=== PATIENT | male | born 1995 | race Caucasian/White ===

== ENCOUNTER 2019-06-30 00:22 | Emergency (ER) | payer OTHER ==
[2019-06-30] MEDS ORDERED: AZITHROMYCIN 250 MG TABLET PO STA (02:15)
[2019-06-30] MEDS ORDERED: DEXAMETHASONE 10 MG/ML VIAL PO STA (02:15)
[2019-06-30] MEDS ORDERED: CHERRY SYRUP 10 ML UDC PO ONE (02:15)
[2019-06-30] MEDS ORDERED: ACETAMINOPHEN 325 MG TABLET PO STA (02:15)
--- NOTE | 2019-06-30 02:18 | ED Physician Documentation ---
PD HPI URI - Stated complaint Stated Complaint: CONGESTION/COUGH/HEAD PRESSURE - Chief complaint Chief Complaint: Resp - History obtained from History obtained from: Patient, Family - History of Present Illness Timing - onset: Yesterday Timing duration: Days (2) Timing details: Gradual onset, Still present Associated symptoms: Fever, Chills, Ear pain, Nasal congestion, Rhinorrhea, Sinus pain, Sore throat, Dry cough Contributing factors: Sick contact Improves by: Rest, Medication Worsened by: Activity Similar symptoms before: Has not had sx before Recently seen: Not recently seen - Additional information Additional information: Previously well 23-year-old male has developed a cough and congestion with a feeling of cotton in both of his ears sinus pressure and pain and a sore throat. He took some Tylenol earlier in the day and he has not taken any since. He has developed fever and he aches everywhere. Review of Systems Constitutional: reports: Fever, Chills, Myalgias, Fatigue Eyes: denies: Decreased vision Ears: reports: Ear pain Nose: reports: Rhinorrhea / runny nose, Congestion, Sinus pressure / pain Throat: reports: Sore throat Cardiac: denies: Chest pain / pressure, Palpitations Respiratory: reports: Cough. denies: Dyspnea GI: denies: Vomiting PD PAST MEDICAL HISTORY - Present Medications Home Medications: Ambulatory Orders Medication Instructions Recorded Confirmed Azithromycin [Zithromax] 250 mg PO DAILY #4 tablet 06/30/19 - Allergies Allergies/Adverse Reactions: Allergies Allergy/AdvReac Type Severity Reaction Status Date / Time No Known Drug Allergies Allergy Verified 06/30/19 00:35 PD ED PE NORMAL - Vitals Vital signs reviewed: Yes (febrile and hypertensive) - General General: Alert and oriented X 3, No acute distress, Well developed/nourished - HEENT HEENT: Atraumatic, PERRL, EOMI, Pharynx benign, Other (both TM's are inflamed the right is worse than the left. There is bilat maxillary sinus point tenderness. 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, No motor deficit, No sensory deficit, Normal speech Eye Opening: Spontaneous Motor: Obeys Commands Verbal: Oriented GCS Score: 15 - Psych Psych: Normal mood, Normal affect Results - Vitals Vitals: Vital Signs - 24 hr 06/30/19 00:30 Temperature 37.9 C H Heart Rate 100 Respiratory 18 Rate Blood Pressure 143/82 H O2 Saturation 99 Oxygen O2 Source Room air PD MEDICAL DECISION MAKING - ED course Complexity details: reviewed results, re-evaluated patient, considered differential, d/w patient, d/w family ED course: 23-year-old male with acute febrile illness has otitis on examination appears to have sinusitis with sinus point tenderness as well he is administered Dex Methasone 10 mg orally and given 500 mg of a azithromycin as well as Tylenol. We will place him on a course of azithromycin. Departure - Departure Disposition: 01 Home, Self Care Clinical Impression: Otitis media Qualifiers: Otitis media type: suppurative Chronicity: acute Laterality: bilateral Recurrence: non-recurrent Spontaneous tympanic membrane rupture: without spontaneous rupture Qualified Code(s): H66.003 - Acute suppurative otitis media without spontaneous rupture of ear drum, bilateral Sinusitis Qualifiers: Sinusitis location: maxillary Chronicity: acute Recurrence: non-recurrent Qualified Code(s): J01.00 - Acute maxillary sinusitis, unspecified Condition: Stable Instructions: ED Sinusitis Abx Tx, ED Otitis Media Acute Adult Follow-Up: [facility] [Provider Group] Prescriptions: Azithromycin [Zithromax] 250 mg PO DAILY #4 tablet Forms: Activity restrictions
[2019-06-30 02:36] VITALS: BP 134/85
== END 2019-06-30 02:35 | disposition home or self-care (01) ==
LOC: ED 00:22
DX: J01.00 Acute maxillary sinusitis, unspecified (principal); H66.003 Acute suppurative otitis media without spontaneous rupture of ear drum, bilateral
CPT/HCPCS: 99282; 99284; A9270

== ENCOUNTER 2020-07-14 09:40 | Outpatient (CLI) | payer OTHER ==
--- NOTE | 2020-07-14 10:04 | SLEEP CARE CONSULTATION ---
Information from patient questionnaire entered by Edith Moe. I have reviewed and concur with the information entered by Edith Moe. This document represents the service I personally performed and the decisions made by me, Ximena Torres MD, [facility]. History of Present Illness Service Date and Time: 07/14/2020 0940 Reason for Visit: New patient Chief Complaint: reports: Insomnia, Unrefreshed sleep, Fatigue, Frequent awakenings at night Date of Onset: 2018 Usual bedtime: constantly changing Time it takes to fall asleep: 3+ hours Snores at night: Yes (began 3 months ago) Observed to quit breathing while asleep: No Sleeps alone due to snoring: No Number of times waking at night: every 30-60 minutes Reasons for waking at night: reports: Other (unknown) Toss, Turn, or Twitch while sleeping: Yes Recalls having dreams: Yes Feels refreshed in the morning: No Morning headache: Yes Sleepy or fatigued during the day: Yes Ever fallen asleep while driving: No Takes day naps: No Dreams during day naps: No Prior sleep studies: No Additional HPI information: I had the pleasure of seeing Mr. Reyes today regarding the possibility of him having a sleep disorder. As you know, he is a 68 year old gentleman who complains of insomnia, unrefreshed sleep, frequent awakenings, and persistent fatigue for the past year. He works swing shift. The patient tells me that he normally goes to bed around 9 am, and it takes him approximately 3 hours to fall asleep. He took melatonin. Ambien worked well but he is out of it. He has been told that he snores loudly and irregularly at night. He has never been ob served to stop breathing in his sleep. He can recall waking up on the average of every hour during the night, totaling 30 60 minutes. Most of the time he wakes up because of unknown reasons. He has never awakened because of his own snoring, choking, and having to gasp for air. There is a lot of tossing and turning in his sleep. No somniloquy (sleep talking) or somnambulism (sleep walking). Generally he can recall having dreams. In the morning he usually gets up out of the bed at variable times between noon and 2 pm. not feeling refreshed nor rested. He usually does have a headache upon waking up. During the day he complains of feeling sleepy and fatigued. However, his score on [place] Sleepiness Scale is only 1 out of 24. He has never fallen asleep while driving nor has had any accident due to sleepiness. He usually does not take naps during the day. Upon falling asleep during the day he denies having vivid dreams. He reports having impaired concentration during the day. 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 He is and lives in [place]. He smoked pipe occasionally. He drinks alcohol on the average of once a week. Family History: His brother has obstructive sleep apnea-hypopnea but not treated. 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 Patient is and lives in [place]. Have you smoked in the past 12 months: Yes (Pipe) Years of smokin Alcohol use: Yes Alcohol amount and frequency: 1 on occasion Caffeine use: Yes Caffeine amount and frequency: Dr. Kruse, Tea, Coffee Family History Family history of sleep disordered breathing: Yes (Every male in family snores) Family Hx Sleep Apnea: Mother: Snoring, Father: Snoring, Sibling: Sleep apnea - Untreated Allergies and Home Medications Drug allergies reviewed: Yes (NKDA) Home medication list reviewed: Yes (none) Review of Systems Cardiovascular: denies: high blood pressure, palpitations, chest pain, irregular heart rate or pulse, leg or foot swelling, have to sleep sitting up, other Respiratory: denies: shortness of breath, wheeze, sputum production, chronic cough, other Gastrointestinal: denies: heartburn, difficulty swallowing, nausea, vomitting, diarrhea, abdominal pain, other Urinary: denies: incontinence, frequency, urgency, impotence, other Neurological: denies: headaches, seizure, head trauma, disorientation, speech dysfunction, gait or balance problems, fainting or unconsciousness, other Psychiatric: reports: depression Ear/Nose/Throat: denies: nasal congestion, sinus problems, nose bleeds, dry mouth/throat, hoarseness, injury to nose, tonsillectomy, wisdom teeth removed, other Endocrine: denies: thyroid disease, history of goiter, sluggishness, too hot or cold, excessive thirst, increased appetite, increased urination, unexplained weakness, other Musculoskeletal: reports: joint pain, back pain, muscle pain or cramping Immunologic: denies: sneezing, rash, itching, allergies to food or environment, other Physical Exam Height: 5 ft 6 in Weight: 175 lb Body Mass Index: 28.2 BMI Classification: Overweight Impression and Plan IMPRESSION: 1. Possible Obstructive Sleep Apnea-Hypopnea Syndrome, as suggested by history of loud snoring, frequent awakenings during the night, unrefreshed sleep, morning headache, cognitive impairment, and daytime hypersomnolence. Narrow oropharynx and obesity are common predisposing factors for obstructive sleep apnea-hypopnea syndrome. Pathophysiology of sleep-disordered breathing was discussed. I recommend proceeding to polysomnography to confirm the diagnosis and to assess severity. I informed the patient of what the sleep studies involve and after some discussion, he agreed to proceed. 2. Shift work sleep disorder. The patient is working nightshift regularly. He does keep regular sleep-wake schedule throughout the week, including the weekends. However, sleeping during the day is prone to disruption. Melatonin is the drug of choice but zolpidem is also reasonable. Plan: 1. Schedule an in-laboratory polysomnography. The sleep study will be performed during the day to match his sleep-wake schedule and to allow him to go back to work in the evening. 2. Return in 1 to 2 weeks after the study to discuss results and initiate therapy. Visit Type: Telehealth Video Video Type: Lance Patient Location: Home Location of Provider: Home Patient agrees and consents to this telehealth visit type: Yes Patient agrees to have their insurance billed: Yes Time Spent with Patient (minutes): 20 Provider Statement: I spent 100% of the Telehealth Video Call with the patient with greater than 50% spent counseling the patient and coordination of care.
== END 2020-07-14 09:41 | disposition home or self-care (01) ==
LOC: SC 09:40
PROVIDERS: ATTEND Internal Medicine Pulmonary Disease
DX: G47.10 Hypersomnia, unspecified (principal); R41.89 Other symptoms and signs involving cognitive functions and awareness; R51.9 Headache, unspecified; G47.8 Other sleep disorders; R06.83 Snoring

== ENCOUNTER 2020-07-26 07:45 | Emergency (ER) | payer OTHER ==
[2020-07-26 07:54] VITALS: BP 131/79
--- NOTE | 2020-07-26 08:22 | ED Physician Documentation ---
PD HPI SKIN - Stated complaint Stated Complaint: BACK RASH - Chief complaint Chief Complaint: Wound - History obtained from History obtained from: Patient, Family - Additional information Additional information: Emergency department complaining of a severe burning pain of the skin of his back for approximately 6 days, now with a rash. He states that he began to feel the sensation over his bilateral shoulder blades, but then it spread down both sides of his back. He is also noticed it wrapping around his flanks. The patient states that he has never had anything like this before. He denies any fevers, chills, or body aches. No headache. He states that he saw his doctor, who started him on gabapentin, but this did not seem to help. He states that this morning, he had his look at his back again and she noticed some red bumps. He states the pain seems to wax and wane a little, but it has been bad enough to keep him up at night. He denies any muscular pain. No trauma. He has never had a shingles outbreak. He states he was exposed to varicella when he was born, because his mother was infected at that time. The patient denies any itching. No rash on any of his extremities. He has not been using any new soaps, lotions, or detergents. He has no history of allergic reaction to anything. No other complaints at this time Review of Systems Ten Systems: 10 systems reviewed and negative Constitutional: reports: Reviewed and negative. denies: Fever, Chills, Myalgias Eyes: reports: Reviewed and negative Ears: reports: Reviewed and negative Nose: reports: Reviewed and negative. denies: Rhinorrhea / runny nose Throat: reports: Reviewed and negative. denies: Sore throat Cardiac: reports: Reviewed and negative Respiratory: reports: Reviewed and negative GI: reports: Reviewed and negative. denies: Abdominal Pain : reports: Reviewed and negative Skin: reports: Rash, Other (Skin pain) Musculoskeletal: reports: Reviewed and negative Neurologic: reports: Reviewed and negative. denies: Headache Psychiatric: reports: Reviewed and negative Endocrine: reports: Reviewed and negative Immunocompromised: reports: Reviewed and negative PD PAST MEDICAL HISTORY - Present Medications Home Medications: Ambulatory Orders Medication Instructions Recorded Confirmed Azithromycin [Zithromax] 250 mg PO DAILY #4 tablet 06/30/19 Acyclovir [Zovirax] 400 mg PO 5XD 5 Days #5 capsule 07/26/20 predniSONE [Deltasone] 60 mg PO DAILY 5 Days #15 tablet 07/26/20 - Allergies Allergies/Adverse Reactions: Allergies Allergy/AdvReac Type Severity Reaction Status Date / Time No Known Drug Allergies Allergy Verified 07/26/20 07:54 PD ED PE NORMAL - Vitals Vital signs reviewed: Yes - General General: Alert and oriented X 3, No acute distress - HEENT HEENT: Atraumatic, PERRL, EOMI, Moist mucous membranes - Neck Neck: Supple, no meningeal sign - Respiratory Respiratory: No respiratory distress - Derm Derm: Warm and dry, Other (She has extensive scarring without pock marking on his back, consistent with his history of acne as a teenager. Scant, scattered macules and papules with 2 pustules on right upper back. 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 Certainly, the description of the pain and burning for several days, leading up to an outbreak of rash is concerning for shingles; however, the rash at this point does not appear typical of shingles, and it would be highly unusual for the outbreak to involve multiple nerve roots in a young, otherwise healthy patient. At this time, given that symptoms have been going on for almost a week, I have discussed the option with the patient of trying a course of acyclovir and prednisone to see if this helps. I cannot be certain that the patient has shingles and as stated, it would be in atypical case of so. However, the rash does not appear to be an allergic reaction and does not sound typical of this either. We discussed the need for primary care and potentially, dermatology follow-up, if the patient's symptoms are not better within the week. Patient states that he is well established with his primary care physician at the [facility] and that they have already placed a dermatology referral. We have discussed the usual indications for return. Departure - Departure Disposition: 01 Home, Self Care Clinical Impression: Zoster Qualifiers: Herpes zoster complications: without complications Qualified Code(s): B02.9 - Zoster without complications Condition: Stable Instructions: ED Shingles Prescriptions: predniSONE [Deltasone] 60 mg PO DAILY 5 Days #15 tablet Acyclovir [Zovirax] 400 mg PO 5XD 5 Days #5 capsule Comments: It is not clear exactly what is causing your symptoms. Your rash is very mild and does not appear typical of either shingles or an allergic reaction. H owever, with the intense pain and burning that you have been having for several days before the rash, there is certainly concern for an atypical form of shingles, as the illness often starts with the kind of pain you are describing before rash outbreak occurs. This point in time, the best course is probably to treat you with the antiviral acyclovir and a short course of an anti- inflammatory steroid. If you continue to have symptoms for more than the next week, you will need to follow-up with your doctor and potentially, dermatology. You may use ibuprofen and Tylenol to help with the discomfort, along with the other medications you are on. Forms: Activity restrictions
== END 2020-07-26 08:34 | disposition home or self-care (01) ==
LOC: ED 07:45
DX: B02.9 Zoster without complications (principal)
CPT/HCPCS: 99282; 99284

== ENCOUNTER 2020-08-26 06:45 | Outpatient (CLI) | payer OTHER | END 2020-08-26 06:46 | disposition home or self-care (01) | LOC: SC 06:45 | PROVIDERS: ATTEND Internal Medicine Pulmonary Disease | DX: G47.61 Periodic limb movement disorder (principal); E66.3 Overweight; Z68.28 Body mass index [BMI] 28.0-28.9, adult | CPT/HCPCS: 95810 ==

== ENCOUNTER 2020-09-03 17:03 | Outpatient (CLI) | payer OTHER ==
--- NOTE | 2020-09-03 17:35 | SLEEP CARE CONSULTATION ---
Information from patient questionnaire entered by Jose Fernández. I have reviewed and concur with the information entered by Jose Fernández. This document represents the service I personally performed and the decisions made by , Kelley Sandoval ARNP. History of Present Illness Service Date and Time: 09/03/2020 1700 Initial [place] Sleepiness Scale score: 1 (in 2019) Current [place] Sleepiness Scale score: 10 Additional HPI information: REBECCA TEIXEIRA returns via Telehealth vist for follow up and results of the recently performed polysomnography. The patient was informed of the following findings: patient has no significant sleep disordered breathing with an average AHI of 0.3 and bakari oxygen saturation of 91%. He did have moderate PLMs contributing to sleep fragmentation. I explained the pathophysiology behind obstructive sleep apnea. Patient does not have sleep apnea and was advised how weight gain could increase the risk of developing sleep apnea in the future. Patient has light to loud snoring. Snoring can be reduced by weight loss. Weight loss is best achieved with diet consult. Patient instructed to contact PCP for referral. Snoring can also be treated with an oral appliance from a dentist. Advised to check insurance coverage. In addition, an ENT evaluation can be do to see if other treatment is indicated. Patient counseled not drink alcohol less than 4 hours before bedtime as it can increase snoring and apnea. Patient was cautioned about risks of drowsy driving until sleepiness symptoms resolve. Sleep Study - Results Type of Sleep Study: Polysomnography Prior sleep studies: No Polysomnography/Home Sleep Study results: IMPRESSION: The quality of the study is good. The patient had normal sleep efficiency. The sleep architecture was abnormal for mild sleep fragmentation and reduced amount of time spent in slow wave sleep (N3). Respiratory monitoring showed no significant sleep disordered breathing sleep-disordered breathing (AHI = 0.3) or hypoxia (bakari oxygen saturation of 91%). The patient slept adequately in supine position (supine AHI = 0.4; non-supine = 0.00). Snore was light to loud in intensity. There was moderate periodic leg movement of sleep contributing to the sleep fragmentation. Cardiac rhythm was normal sinus rhythm without significant arrhythmia. No abnormal behavior (parasomnia) observed during the night. Allergies and Home Medications Drug allergies reviewed: Yes (NKDA) Home medication list reviewed: Yes (no changes) Review of Systems Review of systems same as previous: Yes (no changes) Physical Exam Vital signs obtained and entered by: Telehealth visit to limit exposure during Covid pandemic Height: 5 ft 6 in Impression and Plan 1. Snoring but no significant sleep disordered breathing. Patient advised that often weight loss will reduce snoring as well as apnea risk. An oral appliance can also be used for snoring. This would require a dental consultation. Patient cautioned not to use other online appliances as can cause bite issues. A list of accredited dentists in area and one local dentist who makes oral appliances given. Patient is advised to check if insurance will cover. An ENT consult can also be helpful to determine if any other treatment is an option. 2. Periodic limb movement, moderate, that did add to fragmentation of the patients sleep. Periodic limb movement of sleep (PLMS) is characterized by episodes of repetitive limb movements that occur during sleep and usually involve the lower limbs. The etiology is unknown but can be associated with restless leg syndrome (RLS), neuropathy, spinal cord diseases, kidney disease, rheumatological disorders, narcolepsy, obstructive sleep apnea, and REM sleep behavior disorder. Other factors that can increase PLMS and/or RLS are heredity and iron deficiency as reflected by a low serum ferritin level below 50 to 75mcg / L. Several medications can precipitate or aggravate PLMS such as selective serotonin re-uptake inhibitor antidepressants, tricyclic antidepressants, lithium, and dopamine receptor antagonists with the exception of bupropion. Caffeine can also aggravate PLMS and should be avoided. Sleep hygiene methods can also improve sleep as well as lifestyle changes such as regular exercise. Patient was advised that further evaluation may be indicated. ------Patient had concern about feeling like he is "consciously awake with his eyes closed". He feels like his "body is rested" when he wakes up but his "mind is still tired". He states he knows he is sleeping but still feels he is conscious while laying there in his bed. He did reach REM sleep quickly in the sleep study. He states that when he was being prepared for the test he was sitting with his eyes closed due to the bright lights. The sound recording technician left room and when he came back he commented that he had got a little nap but he states he feels he was awake the whole time the sound recording technician was gone from the room. I discussed with patient that I will consult with Dr. Meyer about this and get back to him about his concerns with Dr. Meyer's feedback. He voiced understanding. * Follow up with PCP for moderate PLMs as needed * I will consult with director non profit about feeling awake when sleeping * Avoid alcohol consumption near bedtime * The patient is cautioned about driving until sleepiness is completely resolved. * Return as needed to office. Counseling Topics: Weight loss health impact Follow up with: PCP Follow up recommended for: PLMS Visit Type: Telehealth Video Video Type: Doximity Patient Location: Home Location of Provider: Office Patient agrees and consents to this telehealth visit type: Yes Patient agrees to have their insurance billed: Yes Time Spent with Patient (minutes): 17 Provider Statement: I spent 100% of the Telehealth Video Call with the patient with greater than 50% spent counseling the patient and coordination of care.
== END 2020-09-03 17:04 | disposition home or self-care (01) ==
LOC: SC 17:03
PROVIDERS: ATTEND Nurse Practitioner Family
DX: R06.83 Snoring (principal); G47.61 Periodic limb movement disorder

== ENCOUNTER 2020-09-13 00:06 | Emergency (ER) | payer OTHER ==
[2020-09-13 00:50] LABS: BASOPHILS % (AUTO) 0.3 %; EOSINOPHILS # (AUTO) 0.3 10^3/uL (0.0-0.7); EOSINOPHILS % (AUTO) 2.3 %; HGB - HEMOGLOBIN 15.1 g/dL (14.0-18.0); LYMPHOCYTES # (AUTO) 2.9 10^3/uL (1.5-3.5); LYMPHOCYTES % (AUTO) 20.7 %; MEAN CORPUSCULAR HEMOGLOBIN 32.4 pg (27.0-31.0); MEAN CORPUSCULAR HGB CONC 34.5 g/dL (32.0-36.0); MEAN PLATELET VOLUME 10.2 fL (7.4-11.4); MONOCYTES # (AUTO) 0.9 10^3/uL (0.0-1.0); MONOCYTES % (AUTO) 6.3 %; NEUTROPHILS # (AUTO) 9.9 10^3/uL (1.5-6.6); NEUTROPHILS % (AUTO) 70.1 %; PLT - PLATELET COUNT 241 10^3/uL (130-450); RED BLOOD COUNT 4.66 10^6/uL (4.70-6.10); RED CELL DISTRIBUTION WIDTH 11.6 % (12.0-15.0); WHITE BLOOD COUNT 14.1 x10^3/uL (4.8-10.8)
[2020-09-13 00:58] LABS: ALBUMIN 4.9 g/dL (3.2-5.5); ALBUMIN/GLOBULIN RATIO 1.7 (1.0-2.2); BILIRUBIN,TOTAL 0.7 mg/dL (0.2-1.0); CALCIUM 9.6 mg/dL (8.5-10.3); CREATININE 1.1 mg/dL (0.6-1.2); TOTAL PROTEIN 7.8 g/dL (6.7-8.2)
[2020-09-13] MEDS ORDERED: KETOROLAC 30 MG/ML VIAL IVP STA (01:25)
[2020-09-13] MEDS ORDERED: HYDROmorphone 1 MG/ML CARPUJECT IVP STA (01:25)
[2020-09-13] MEDS ORDERED: ONDANSETRON 4 MG/2 ML VIAL IVP STA (01:28)
[2020-09-13 02:23] LABS: BILIRUBIN,URINE NEGATIVE (NEGATIVE); GLUCOSE, URINE (UA) NEGATIVE (NEGATIVE); KETONES,URINE (UA) NEGATIVE (NEGATIVE); LEUKOCYTE ESTERASE, URINE NEGATIVE (NEGATIVE); NITRITE,URINE NEGATIVE (NEGATIVE); OCCULT BLOOD,URINE NEGATIVE (NEGATIVE); PROTEIN,URINE TRACE mg/dL (NEGATIVE); UROBILINOGEN,URINE 0.2 (NORMAL) E.U./dL (NORMAL)
[2020-09-13 02:25] LABS: CLARITY,URINE CLEAR (CLEAR)
--- NOTE | 2020-09-13 03:14 | ED Physician Documentation ---
PD HPI ABD PAIN - Stated complaint Stated Complaint: ABD/BACK PX - Chief complaint Chief Complaint: Abd Pain - History obtained from History obtained from: Patient - Additional information Additional information: Patient comes emergency department complaining of onset around 2100 this evening of back pain which is grown steadily worse. Patient states that he feels the pain in both sides of his low back but especially on the left side and that it seems to radiate through to the front of his abdomen. He states he feels phleboliths and left flank pain. Patient denies any change in bowel habits. He h as been nauseated but has not vomited. No fevers or chills. No dysuria or blood in the urine. No scrotal or testicular complaints. No history of kidney stones. Patient has had no abdominal surgeries. He states that the pain grew steadily worse and that it seems to come in waves. No recent back injury. No other complaints at this time. Review of Systems Ten Systems: 10 systems reviewed and negative Constitutional: reports: Reviewed and negative Eyes: reports: Reviewed and negative Ears: reports: Reviewed and negative Nose: reports: Reviewed and negative Throat: reports: Reviewed and negative Cardiac: reports: Reviewed and negative Respiratory: reports: Reviewed and negative GI: reports: Abdominal Pain, Nausea : reports: Reviewed and negative. denies: Dysuria, Hematuria Skin: reports: Reviewed and negative Musculoskeletal: reports: Back pain Neurologic: reports: Reviewed and negative Psychiatric: reports: Reviewed and negative Endocrine: reports: Reviewed and negative Immunocompromised: reports: Reviewed and negative PD PAST MEDICAL HISTORY - Past Medical History Past Medical History: Yes Neuro: Migraines - Past Surgical History Past Surgical History: No - Present Medications Home Medications: Ambulatory Orders Medication Instructions Recorded Confirmed HYDROcod/ACETAM 5/325 [[place] 5/325] 1 ea PO Q6H PRN #6 tablet 09/13/20 - Allergies Allergies/Adverse Reactions: Allergies Allergy/AdvReac Type Severity Reaction Status Date / Time No Known Drug Allergies Allergy Verified 09/13/20 00:18 - Social History Does the pt smoke?: No Smoking Status: Never smoker Does the pt drink ETOH?: Yes Does the pt have substance abuse?: No - Immunizations Immunizations are current?: Yes - POLST Patient has POLST: No PD ED PE NORMAL - Vitals Vital signs reviewed: Yes - General General: Alert and oriented X 3, Other (Patient appears visibly uncomfortable and is groaning and writhing on the bed.) - HEENT HEENT: Atraumatic, PERRL, EOMI, Moist mucous membranes - Neck Neck: Supple, no meningeal sign - Cardiac Cardiac: RRR, No murmur, Strong equal pulses - Respiratory Respiratory: No respiratory distress, Clear bilaterally - Abdomen Abdomen: Soft, Non tender, Non distended - Back Back: No CVA TTP, No spinal TTP - Derm Derm: Normal color, Warm and dry, No rash - Extremities Extremities: No deformity, No edema, No calf tenderness / cord - Neuro Neuro: Alert and oriented X 3 - Psych Psych: Normal mood, Normal affect Results - Vitals Vitals: Vital Signs - 24 hr 09/13/20 09/13/20 09/13/20 00:16 00:18 02:18 Temperature 36.9 C 36.9 C 36.8 C Heart Rate 72 72 74 Respiratory 18 18 16 Rate Blood Pressure 154/94 H 154/94 H 148/88 H O2 Saturation 97 97 98 Oxygen O2 Source Room air - Labs Labs: Laboratory Tests 09/13/20 09/13/20 09/13/20 00:25 00:25 02:15 WBC 14.1 H RBC 4.66 L Hgb 15.1 Hct 43.8 MCV 94.0 MCH 32.4 H MCHC 34.5 RDW 11.6 L Plt Count 241 MPV 10.2 Neut # (Auto) 9.9 H Lymph # (Auto) 2.9 [place] # (Auto) 0.9 Eos # (Auto) 0.3 Baso # (Auto) 0.0 Absolute Nucleated RBC 0.00 Nucleated RBC % 0.0 Sodium 139 Potassium 3.6 Chloride 103 Carbon Dioxide 26 Anion Gap 10.0 BUN 13 Creatinine 1.1 Estimated GFR (MDRD) 82 L Glucose 102 H Calcium 9.6 Total Bilirubin 0.7 AST 28 ALT 44 Alkaline Phosphatase 96 Total Protein 7.8 Albumin 4.9 Globulin 2.9 Albumin/Globulin Ratio 1.7 Lipase 30 Urine Color YELLOW Urine Clarity CLEAR Urine pH 6.0 Ur Specific [place] 1.010 Urine Protein TRACE Urine Glucose (UA) NEGATIVE Urine Ketones NEGATIVE Urine Occult Blood NEGATIVE Urine Nitrite NEGATIVE Urine Bilirubin NEGATIVE Urine Urobilinogen 0.2 (NORMAL) Ur Leukocyte Esterase NEGATIVE Ur Microscopic Review NOT INDICATED Urine Culture Comments NOT INDICATED - Rads (name of study) Ct abd/pelvis Radiology: Final report received, EMP read indepedently, See rad report (neg) PD MEDICAL DECISION MAKING - ED course Complexity details: reviewed results, re-evaluated patient, considered differential, d/w patient ED course: The patient was treated symptomatically with IV Toradol, Zofran, and Dilaudid. He was found to be feeling much better, though the nausea did recur later. Laboratory studies showed a mildly elevated white blood cell count, but a negative urine and CT scan of the abdomen and pelvis without contrast was neg ative. I had suspected most probably a kidney stone in this patient and was surprised to find the CT completely negative, given the degree of discomfort the patient seems to be having. I discussed with the patient that his work-up had been negative. The patient had begun to have an increase in nausea again and did actually vomit during our conversation. At this point, he was given an IV dose of Phenergan, but I did not feel that this would exchange mechanic as this her work-up had been nondiagnostic. I discussed with the patient that if his pain recurs to the degree that he was having it before, or if he develops fevers, he should return to the emergency department. The patient does not have any testicular or scrotal complaints, despite specific questioning, and I have discussed with him that while testicular torsion is something that has been considered, this Does not seem likely in light of the lack of specific symptoms and patient. We have discussed the usual indications for return. Departure - Departure Disposition: 01 Home, Self Care Clinical Impression: Abdominal pain Qualifiers: Abdominal location: lower abdomen, unspecified Qualified Code(s): R10.30 - Lower abdominal pain, unspecified Back pain Qualifiers: Back pain location: low back pain Chronicity: acute Back pain laterality: left Sciatica presence: without sciatica Qualified Code(s): M54.5 - Low back pain Condition: Stable Instructions: ED Abdominal Pain Unkn Cause, ED Spasm Back No Trauma Prescriptions: HYDROcod/ACETAM 5/325 [[place] 5/325] 1 ea PO Q6H PRN #6 tablet PRN Reason: Pain Comments: Your labs show a mild elevation of your white blood cell count, but otherwise are unremarkable. Your urinalysis is totally normal and your CT scan, which is very detailed, did not show any abnormalities. It is not exactly clear why you have had the symptoms that you have tonight. It is possible that you had a small kidney stone which passed, and caused a lot of pain and spasms through out the ureter, which is the tube that goes between the kidney and bladder. If this is the case, the stone had already been expelled from your bladder by the time of CT scan. There is no evidence of appendicitis or infection of your bowel wall as a cause of the pain. There is no blockage or other emergent condition. It is possible that you could have had a spasm of the deep musculature of your back, which can cause quite a bit of discomfort. At this time, it is not exactly clear what has caused your pain, but no emergent condition has been identified. If you are scheduled to work tomorrow, you may take the day off to rest and recover. If you have recurrence of your pain, especially with fever, please return to the emergency department.
[2020-09-13] MEDS ORDERED: ONDANSETRON ODT 4 MG Prepack 2 TL PRN (03:23)
[2020-09-13] MEDS ORDERED: PROMETHAZINE INJ 25 MG in SODIUM CHLORIDE 0.9% 50 ML IV STA (03:23)
[2020-09-13] MEDS ORDERED: PROMETHAZINE 25 MG/1 ML VIAL ONE (03:37)
[2020-09-13 04:09] VITALS: BP 142/80
--- NOTE | 2020-09-13 09:09 | CT Report ---
PROCEDURE: Abdomen/Pelvis WO INDICATIONS: back/L flank/low abd pain TECHNIQUE: Noncontrast 5 mm thick sections acquired from the diaphragms to the symphysis. 5 mm coronal and sagi ttal reformats were then performed. For radiation dose reduction, the following was used: automated exposure control, adjustment of mA and/or kV according to patient size. COMPARISON: None. FINDINGS: Image quality: Excellent. ABDOMEN: Lung bases: Lung bases are clear. Heart size is normal. Solid organs: Liver and spleen are normal in size. Gallbladder is unremarkable Pancreas is normal in contours. No adrenal nodules. Kidneys are normal in size, without hydronephrosis or nephrolithia sis. Peritoneum and bowel: Unenhanced bowel loops demonstrate normal wall thickness and caliber. The gildardo endix is thin-walled and gas-filled. No free fluid or air. Nodes and vessels: No retroperitoneal or mesenteric adenopathy by size criteria. Aorta and inferior vena cava are normal in caliber. Miscellaneous: No ventral hernias. PELVIS: Genitourinary: Bladder wall thickness is normal. Miscellaneous: No inguinal hernias or adenopathy. Bones: No suspicious bony lesions. No vertebral body compression fractures. Intraosseous hemangiom as noted at L3. IMPRESSION: 1. No acute intra-abdominal findings. Normal appendix. Findings are consistent with the overnight interpretation. Reviewed by: Etta Rangel MD on 09/13/2020 8:08 AM [facility] Approved by: Etta Rangel MD on 09/13/2020 8:08 AM [facility] Station ID: [id number]
== END 2020-09-13 04:10 | disposition home or self-care (01) ==
LOC: ED 00:06
DX: R10.30 Lower abdominal pain, unspecified (principal); M54.5 Low back pain; R11.2 Nausea with vomiting, unspecified; D72.829 Elevated white blood cell count, unspecified
CPT/HCPCS: 36415; 74176; 80053; 81003; 83690; 85025; 96374; 96375; 99285; J1170; J7040; 81001; 87086

== ENCOUNTER 2021-12-26 16:55 | Emergency (ER) | payer OTHER ==
[2021-12-26] MEDS ORDERED: ONDANSETRON 4 MG/2 ML VIAL IVP STA (17:17)
[2021-12-26] MEDS ORDERED: SODIUM CHLORIDE 0.9% 1,000 ML IV STA (17:17)
[2021-12-26] MEDS ORDERED: PANTOPRAZOLE 40 MG VIAL IVP STA (17:17)
[2021-12-26 17:30] LABS: BASOPHILS % (AUTO) 0.2 %; EOSINOPHILS # (AUTO) 0.1 10^3/uL (0.0-0.7); EOSINOPHILS % (AUTO) 0.6 %; HCT - HEMATOCRIT 43.5 % (42.0-52.0); LYMPHOCYTES # (AUTO) 2.1 10^3/uL (1.5-3.5); LYMPHOCYTES % (AUTO) 18.8 %; MEAN CORPUSCULAR HEMOGLOBIN 31.8 pg (27.0-31.0); MEAN CORPUSCULAR HGB CONC 34.5 g/dL (32.0-36.0); MEAN CORPUSCULAR VOLUME 92.2 fL (80.0-94.0); MEAN PLATELET VOLUME 9.7 fL (7.4-11.4); MONOCYTES # (AUTO) 0.5 10^3/uL (0.0-1.0); MONOCYTES % (AUTO) 4.7 %; NEUTROPHILS # (AUTO) 8.3 10^3/uL (1.5-6.6); NEUTROPHILS % (AUTO) 75.4 %; PLT - PLATELET COUNT 250 10^3/uL (130-450); RED BLOOD COUNT 4.72 10^6/uL (4.70-6.10); WHITE BLOOD COUNT 10.9 x10^3/uL (4.8-10.8)
[2021-12-26 17:42] LABS: ALBUMIN 5.1 g/dL (3.2-5.5); ALBUMIN/GLOBULIN RATIO 1.6 (1.0-2.2); BILIRUBIN,TOTAL 0.8 mg/dL (0.2-1.0); CALCIUM 9.7 mg/dL (8.5-10.3); CREATININE 0.6 mg/dL (0.6-1.2); POTASSIUM 3.8 mmol/L (3.5-5.0); TOTAL PROTEIN 8.2 g/dL (6.7-8.2)
--- NOTE | 2021-12-26 18:45 | ED Physician Documentation ---
History of Present Illness - Stated complaint Stated Complaint: VOMIT/LETHARGIC/CHILLS/FEVER - Chief complaint Chief Complaint: Abd Pain - History obtained from History obtained from: Patient - History of Present Illness Timing: Today - Additonal information Additional information: 26-year-old male comes in to the emergency department complaint of abdominal mackenzie n, nausea, vomiting. He states he drank a large amount of alcohol last night and is not feeling well today. Nothing makes it better. Worse when trying to eat and drink. No diarrhea. No constipation. Has not had similar symptoms previously. Mild headache, mild light sensitivity. Review of Systems Constitutional: denies: Fever, Chills Throat: denies: Sore throat Cardiac: denies: Chest pain / pressure Respiratory: denies: Cough GI: reports: Abdominal Pain (Epigastric, dull, burning), Nausea, Vomiting Skin: denies: Rash Musculoskeletal: denies: Neck pain, Back pain PD PAST MEDICAL HISTORY - Past Medical History Cardiovascular: None Respiratory: None Neuro: Migraines Endocrine/Autoimmune: None GI: None : None HEENT: None Psych: None Musculoskeletal: None Derm: None - Past Surgical History Past Surgical History: No - Present Medications Home Medications: Ambulatory Orders Medication Instructions Recorded Confirmed Ondansetron Odt [Zofran] 4 mg TL Q6H PRN #10 tablet 12/26/21 - Allergies Allergies/Adverse Reactions: Allergies Allergy/AdvReac Type Severity Reaction Status Date / Time No Known Drug Allergies Allergy Verified 12/26/21 17:04 - Social History Does the pt smoke?: Yes Smoking Status: Current some day smoker Does the pt drink ETOH?: Yes Does the pt have substance abuse?: No - Immunizations Immunizations are current?: Yes - POLST Patient has POLST: No PD ED PE NORMAL - Vitals Vital signs reviewed: Yes - General General: Alert and oriented X 3, No acute distress - HEENT HEENT: PERRL, Moist mucous membranes - Neck Neck: Supple, no meningeal sign - Cardiac Cardiac: RRR, Strong equal pulses - Respiratory Respiratory: No respiratory distress, Clear bilaterally - Abdomen Abdomen: Soft, Non tender, Non distended - Back Back: No CVA TTP, No spinal TTP - Derm Derm: Warm and dry - Neuro Neuro: Alert and oriented X 3 - Psych Psych: Normal mood, Normal affect Results - Vitals Vitals: Vital Signs - 24 hr 12/26/21 17:04 Temperature 36.7 C Heart Rate 72 Respiratory 18 Rate Blood Pressure 122/71 O2 Saturation 97 Oxygen O2 Source Room air - Labs Labs: Laboratory Tests 12/26/21 12/26/21 17:20 17:20 WBC 10.9 H RBC 4.72 Hgb 15.0 Hct 43.5 MCV 92.2 MCH 31.8 H MCHC 34.5 RDW 12.0 Plt Count 250 MPV 9.7 Neut # (Auto) 8.3 H Lymph # (Auto) 2.1 [place] # (Auto) 0.5 Eos # (Auto) 0.1 Baso # (Auto) 0.0 Absolute Nucleated RBC 0.00 Nucleated RBC % 0.0 Sodium 135 Potassium 3.8 Chloride 98 L Carbon Dioxide 26 Anion Gap 11.0 BUN 12 Creatinine 0.6 Estimated GFR (MDRD) 163 Glucose 107 H Calcium 9.7 Total Bilirubin 0.8 AST 66 H ALT 59 Alkaline Phosphatase 74 Total Protein 8.2 Albumin 5.1 Globulin 3.1 Albumin/Globulin Ratio 1.6 Lipase 31 PD MEDICAL DECISION MAKING - ED course Complexity details: reviewed results, re-evaluated patient, considered differential, d/w patient, d/w family ED course: Patient is well-appearing, nontoxic. Afebrile. Feels better after IV fluids and Zofran. Drink 3 to 4 glasses of water in the emergency department. Ambulating well. Appears to be a hangover from alcohol intoxication last night. We will place on Zofran for home and continue supportive care. Patient was given a dose of Protonix for alcohol induced gastritis. Patient will return if he worsens or fails to improve as expected. Patient and family counseled regarding signs and symptoms for which I believe and urgent re-evaluation would be necessary. Patient with good understanding of and agreement to plan and is comfortable going home at this time This document was made in part using voice recognition software. While efforts are made to proofread this document, sound alike and grammatical errors may occur. Departure - Departure Disposition: 01 Home, Self Care Clinical Impression: Hangover without complication Vomiting Qualifiers: Vomiting type: unspecified Nausea presence: with nausea Qualified Code(s): R11.2 - Nausea with vomiting, unspecified Gastritis Qualifiers: Gastritis type: alcoholic Chronicity: acute Gastritis bleeding: without bleeding Qualified Code(s): K29.20 - Alcoholic gastritis without bleeding Condition: Good Instructions: ED Nausea Vomiting, ED Alcohol Intoxication Follow-Up: KAILA GILMORE MD [Primary Care Provider] - As Needed Prescriptions: Ondansetron Odt [Zofran] 4 mg TL Q6H PRN #10 tablet PRN Reason: Nausea / Vomiting Comments: Please follow-up with your doctor as needed for further care. You should be feeling better tomorrow. You were sent home with [facility] sims. A prescription for Zofran was also sent to [facility] in [place]. Drink plenty of fluids, water, Gatorade. Avoid alcohol.
[2021-12-26] MEDS ORDERED: ONDANSETRON ODT 4 MG Prepack 2 TL PRN (18:52)
[2021-12-26 18:53] LABS: BILIRUBIN,URINE NEGATIVE (NEGATIVE); CLARITY,URINE CLEAR (CLEAR); GLUCOSE, URINE (UA) NEGATIVE (NEGATIVE); KETONES,URINE (UA) 15 mg/dL (NEGATIVE); LEUKOCYTE ESTERASE, URINE NEGATIVE (NEGATIVE); NITRITE,URINE NEGATIVE (NEGATIVE); OCCULT BLOOD,URINE NEGATIVE (NEGATIVE); PH,URINE 7.5 PH (5.0-7.5); PROTEIN,URINE NEGATIVE (NEGATIVE); UROBILINOGEN,URINE 0.2 (NORMAL) E.U./dL (NORMAL)
[2021-12-26 19:04] VITALS: BP 130/80
== END 2021-12-26 19:04 | disposition home or self-care (01) ==
LOC: ED 16:55
DX: F10.129 Alcohol abuse with intoxication, unspecified (principal); K29.20 Alcoholic gastritis without bleeding; F17.200 Nicotine dependence, unspecified, uncomplicated
CPT/HCPCS: 36415; 80053; 81001; 81003; 83690; 85025; 87086; 96374; 96375; 99282